=== PATIENT | male | born 1980 | race Caucasian/White ===

== ENCOUNTER 2020-08-15 17:43 | Outpatient (CLI) | payer SELFPAY ==
[2020-08-15 18:23] LABS: #Eosinphils 0.1 10x3/uL (0.0-0.5); #Monocytes 0.8 10x3/uL (0.0-1.1); #Neutrophils 5.8 10x3/uL (1.5-8.4); %Basophils 0.3 % (0.0-2.0); %Eosinophils 0.8 % (0.0-6.0); %Lymphocytes 24.8 % (18.0-47.0); %Monocytes 9.1 % (0.0-10.0); %Neutrophils 64.4 % (40.0-75.0); Hemoglobin 13.9 g/dL (13.5-17.5); Mean Corpuscular HGB CONC 33.7 g/dL (32.0-36.0); Mean Corpuscular Hemoglobin 28.7 pg (27.0-33.0); Mean Corpuscular Volume 85.2 fl (81.2-95.1); Mean Platelet Volume 9.1 fl (7.4-10.4); Platelet Count 298 10x3/uL (150-450); Red Blood Cell (RBC) Count 4.85 10x6/uL (4.32-5.72)
[2020-08-16 04:50] LABS: SARS-CoV-2 PCR by NAA Not Detected (NotDetected)
== END 2020-08-15 17:44 | disposition home or self-care (01) ==
LOC: LABBT 17:43
PROVIDERS: ATTEND Surgery
DX: Z01.812 Encounter for preprocedural laboratory examination (principal); Z20.822 Contact with and (suspected) exposure to COVID-19; K40.91 Unilateral inguinal hernia, without obstruction or gangrene, recurrent
CPT/HCPCS: 85025; 87635; U0003; U0005

== ENCOUNTER 2020-08-18 06:11 | Day surgery (SDC) | payer OTHER ==
[2020-08-17 11:50] VITALS: BMI 22.4
[2020-08-18] MEDS ORDERED: Lidocaine 1% w/Epinephrine 1:100K 20 ML VIAL ONE (06:42)
[2020-08-18] MEDS ORDERED: Bupivacaine 0.25% HCL 30 ML VIAL ONE (06:42)
[2020-08-18] MEDS ORDERED: Lidocaine 2% Jelly 5 ML TUBE ONE (06:47)
[2020-08-18] MEDS ORDERED: Fentanyl 100 MCG/2 ML VIAL ONE ×2 (06:47→09:46)
[2020-08-18] MEDS ORDERED: PROPOFOL 200 MG/20 ML VIAL ONE (08:10)
[2020-08-18] MEDS ORDERED: Glycopyrrolate 0.2 MG/ML 5 ML SYRINGE ONE (08:10)
[2020-08-18] MEDS ORDERED: Esmolol 100 MG/10 ML VIAL ONE (08:10)
[2020-08-18] MEDS ORDERED: Lidocaine 1% PF 5 ML VIAL ONE (08:10)
[2020-08-18] MEDS ORDERED: PHENYLEPHRINE-NS 100 MCG/ML 10 ML SYRINGE ONE (08:10)
[2020-08-18] MEDS ORDERED: Dexamethasone 20 MG/5 ML VIAL ONE (08:10)
[2020-08-18] MEDS ORDERED: Ketorolac Tromethamine 30 MG/ML VIAL ONE (08:10)
[2020-08-18] MEDS ORDERED: Rocuronium Bromide 10 MG/ML (10ML VIAL) ONE (08:10)
[2020-08-18] MEDS ORDERED: Ondansetron PF 4 MG/2 ML Vial ONE (08:10)
== END 2020-08-18 11:30 | disposition home or self-care (01) ==
LOC: SDC 06:11
PROVIDERS: ATTEND Surgery
PROC: 0YU64JZ Supplement Left Inguinal Region with Synthetic Substitute, Percutaneous Endoscopic Approach (ICD-10-PCS; principal; 2020-08-18)
DX: K40.91 Unilateral inguinal hernia, without obstruction or gangrene, recurrent (principal); Z79.899 Other long term (current) drug therapy
CPT/HCPCS: C1781; J0690; J1100; J1885; J2405; J2704; J3010; S0020